=== PATIENT | male | born 1990 | race Caucasian/White ===

== ENCOUNTER 2021-06-29 13:41 | Emergency (ER) | payer OTHER ==
[2021-06-29] MEDS ORDERED: Ketorolac Tromethamine 30 MG/ML VIAL ONE (14:16)
[2021-06-29] MEDS ORDERED: Lidocaine 1% w/Epinephrine 1:100K 20 ML VIAL ONE (14:16)
[2021-06-29] MEDS ORDERED: CEFAZOLIN 1 GM VIAL ONE (14:58)
== END 2021-06-29 15:17 | disposition home or self-care (01) ==
LOC: CSHERS 13:41
DX: S91.331A Puncture wound without foreign body, right foot, initial encounter (principal); I48.91 Unspecified atrial fibrillation; Z79.899 Other long term (current) drug therapy; W26.8XXA Contact with other sharp object(s), not elsewhere classified, initial encounter
CPT/HCPCS: 28190; 96374; 96375; J0690; J1885